=== PATIENT | male | born 1955 | race Caucasian/White ===

== ENCOUNTER 2016-12-09 08:35 | Emergency (ER) | payer OTHER ==
[2016-12-09 08:48] VITALS: TEMP 98.1; BMI 24.0
--- NOTE | 2016-12-09 09:23 | PDOC ---
History of Present Illness <Sonny Finney - Last Filed: 12/09/16 16:59> - General History Source: Patient Exam Limitations: No Limitations - History of Present Illness Initial Comments: 12/09/16 10:18 The patient is a 61 year old male, with a significant past medical history of chronic venous stasis, hepatitis C, cirrhosis, GERD and chronic alcohol use, who presents to the emergency department complaining of increased swelling and redness to the right robles for approximately 1 week. Patient reports he has noticed increased warmth and erythema at the right robles. Patient states he had a bakers cyst at the right that was removed about 1 year ago. Since then, the patient reports the wound was healing well, and he has obtained multiple dopplers to monitor his vascular flow. He denies any history of trauma to the right leg or any difficulty ambulating. The patient denies any recent fever, chills, headache, or dizziness. He denies any chest pain, shortness of breath, diaphoresis, or palpitations. He denies any recent travel or sick contacts. Patient reports he attends the [facility] for Hep C treatment, and per records he is HIV negative. Allergies: NKDA Past Surgical History: Bakers cyst removal, Hernia repair Social History: Chronic ETOH use. Non smoker. No recreational drug use. <Zita Fallon - Last Filed: 12/09/16 18:33> - General Chief Complaint: Redness To Affected Area Stated Complaint: EVALUATION/ CELLULITIS Time Seen by Provider: 12/09/16 09:23 Past History - Past Medical History Anemia: No Asthma: No Cancer: No Cardiac Disorders: No CVA: No COPD: No CHF: No Dementia: No Diabetes: No GI Disorders: Yes (GERD) Disorders: No HTN: No Hypercholesterolemia: No Kidney Stones: No Liver Disease: Yes (CIRRHOSIS) Suicide Attempt (Hx): No Seizures: No Thyroid Disease: No - Surgical History Abdominal Surgery: Yes (HERNIA) Appendectomy: No Cardiac Surgery: No Cholecystectomy: No Lung Surgery: No Neurologic Surgery: No Orthopedic Surgery: No - Reproductive History Testicular Surgery: No - Immunization History Td Vaccination: Yes TDAP Vaccination: No Immunization Up to Date: Yes - Psycho/Social/Smoking Cessation Hx Anxiety: No Suicidal Ideation: No Smoking History: Never smoked Have you smoked in the past 12 months: No Number of Cigarettes Smoked Daily: 0 Information on smoking cessation initiated: No 'Breaking Loose' booklet given: 11/20/15 Hx Alcohol Use: No Drug/Substance Use Hx: No Substance Use Type: None Hx Substance Use Treatment: Yes (DETOX) <Sonny Finney - Last Filed: 12/09/16 16:59> <Zita Fallon - Last Filed: 12/09/16 18:33> - Past Medical History Allergies/Adverse Reactions: Allergies Allergy/AdvReac Type Severity Reaction Status Date / Time No Known Allergies Allergy Verified 12/09/16 08:44 Home Medications: Ambulatory Orders Amoxicillin/Potassium Clav [Augmentin 500-125 Tablet] 1 each PO TID #30 tablet 12/09/16 Review of Systems - Review of Systems Able to Perform ROS?: Yes Comments:: 12/09/16 10:18 GENERAL/CONSTITUTIONAL: No fever or chills. No weakness. HEAD, EYES, EARS, NOSE AND THROAT: No change in vision. No ear pain or discharge. No sore throat. CARDIOVASCULAR: No chest pain or shortness of breath. RESPIRATORY: No cough, wheezing, or hemoptysis. GASTROINTESTINAL: No nausea, vomiting, diarrhea or constipation. GENITOURINARY: No dysuria, frequency, or change in urination. MUSCULOSKELETAL: Yes: +right leg swelling. No joint or muscle pain. No neck or back pain. SKIN: Yes: +increased swelling, redness, and warmth to the right robles. No rash NEUROLOGIC: No headache, vertigo, loss of consciousness, or change in strength/ sensation. ENDOCRINE: No increased thirst. No abnormal weight change. HEMATOLOGIC/LYMPHATIC: No anemia, easy bleeding, or history of blood clots. ALLERGIC/IMMUNOLOGIC: No hives or skin allergy. <Zita Fallon - Last Filed: 12/09/16 18:33> *Physical Exam - Vital Signs Last Vital Signs Temp Pulse Resp BP Pulse Ox 98.1 F 53 L 18 122/65 96 12/09/16 08:44 12/09/16 08:44 12/09/16 08:44 12/09/16 08:44 12/09/16 08:44 <Sonny Finney - Last Filed: 12/09/16 16:59> - Vital Signs Last Vital Signs Temp Pulse Resp BP Pulse Ox 98.1 F 53 L 18 122/65 96 12/09/16 08:44 12/09/16 08:44 12/09/16 08:44 12/09/16 08:44 12/09/16 08:44 - Physical Exam Comments: 12/09/16 10:18 GENERAL: Awake, alert, and fully oriented, in no acute distress HEAD: No signs of trauma EYES: PERRLA, EOMI, sclera anicteric, conjunctiva clear ENT: Auricles normal inspection, hearing grossly normal, nares patent, oropharynx clear without exudates. Moist mucosa NECK: Normal ROM, supple, no lymphadenopathy, JVD, or masses LUNGS: Breath sounds equal, clear to auscultation bilaterally. No wheezes, and no crackles HEART: Regular rate and rhythm, normal S1 and S2, no murmurs, rubs or gallops ABDOMEN: Soft, nontender, normoactive bowel sounds. No guarding, no rebound. No masses EXTREMITIES: Normal range of motion, no edema. No clubbing or cyanosis. No cords, erythema, or tenderness NEUROLOGICAL: Cranial nerves II through XII grossly intact. Normal speech, normal gait SKIN: In the middle third of the right leg from the knee to the ankle, there is an area that is discolored, atrophic, erythematous, and warm to the touch, with a central area of necrosis, which he states is where the cyst was before. Otherwise normal <Zita Fallon - Last Filed: 12/09/16 18:33> Heart Score/ECG Review - ECG Intrepretation Comment:: 12/09/16 18:32 Vent Rate: 54 bpm IMPRESSION: Sinus bradycardia. <Zita Fallon - Last Filed: 12/09/16 18:33> ED Treatment Course - LABORATORY CBC & Chemistry Diagram: 12/09/16 10:03 12/09/16 10:03 <Sonny Finney - Last Filed: 12/09/16 16:59> - LABORATORY CBC & Chemistry Diagram: 12/09/16 10:03 12/09/16 10:03 - RADIOLOGY Radiograph Interpretation: 12/09/16 12:27 EXAM: US Duplex Art. Lower Extremity. INTERPRETED BY: REVIEWED BY: Dr. Finney IMPRESSION: There is no Doppler evidence of a hemodynamically significant arterial stenosis involving either leg as discussed above. <Zita Fallon - Last Filed: 12/09/16 18:33> Medical Decision Making - Medical Decision Making 12/09/16 12:34 First call placed to Dr. Tejada's office at 12:34. Awaiting call back. <Zita Fallon - Last Filed: 12/09/16 18:33> *DC/Admit/Observation/Transfer - Discharge Dispostion Admit: No - Attestations Physician Attestion: 12/09/16 09:23 I, Dr. Sonny Finney, attest that this document has been prepared under my direction and personally reviewed by me in its entirety. I further attest, that it accurately reflects all work, treatment, procedures and medical decision -making performed by me. <Sonny Finney - Last Filed: 12/09/16 16:59> - Attestations Scribe Attestion: 12/09/16 10:19 Documentation prepared by Zita Fallon, acting as emergency medical services coordinator for Sonny Finney DO. <Zita Fallon - Last Filed: 12/09/16 18:33> Diagnosis at time of Disposition: Temporary low platelet count, Cellulitis of right leg without foot Leukopenia Qualifiers: Leukopenia type: unspecified Qualified Code(s): D72.819 - Decreased white blood cell count, unspecified - Discharge Dispostion Disposition: HOME Condition at time of disposition: Good - Prescriptions
[2016-12-09] MEDS ORDERED: PIPERACILLIN/TAZOB 3.375 GM/50 ML PRE-DOCKED IV ONE (09:56)
[2016-12-09] MEDS ORDERED: VANCOMYCIN 1,000 MG in DEXTROSE 5%-WATER - 250 ML IVPB ONE (09:58)
[2016-12-09 10:25] LABS: EOSINOPHIL 3.8 % (0-4.5); MEAN CELL VOLUME 88.1 fl (80-96); MEAN PLT VOLUME 8.7 fl (7.5-11.1); NEUTROPHILS 52.4 % (42.8-82.8); PLATELET COUNT 94 K/MM3 (134-434); RDW 18.9 % (11.9-15.9); WHITE BLOOD COUNT 2.4 K/mm3 (4.0-10.0)
[2016-12-09 10:37] LABS: INR 1.76 (0.82-1.09); PROTHROMBIN TIME (PATIENT) 19.6 SEC (9.98-11.88)
[2016-12-09 10:39] LABS: ALBUMIN 2.9 g/dl (3.4-5.0); ANION GAP 7 (8-16); CALCIUM 8.3 mg/dL (8.5-10.1); CO2 28 mmol/L (21-32); CREATININE 0.9 mg/dL (0.7-1.3); GLUCOSE,RANDOM 123 mg/dL (74-106); SGPT/ALT 37 U/L (12-78); TOT PROT 7.1 g/dl (6.4-8.2)
[2016-12-09 10:40] LABS: ALK PHOS 108 U/L (45-117)
[2016-12-09 10:42] LABS: SGOT/AST 142 U/L (15-37)
[2016-12-09 10:54] LABS: URINE APPEARANCE CLEAR; URINE BILIRUBIN NEGATIVE (NEGATIVE); URINE BLOOD NEGATIVE (NEGATIVE); URINE COLOR YELLOW; URINE GLUCOSE (UA) NEGATIVE (NEGATIVE); URINE KETONE NEGATIVE (NEGATIVE); URINE LEUK ESTERASE NEGATIVE (NEGATIVE); URINE NITRITE NEGATIVE (NEGATIVE); URINE PROTEIN NEGATIVE (NEGATIVE); URINE UROBILINOGEN 4.0 E.U/dl mg/dL (0.2-1.0)
[2016-12-09] MEDS ORDERED: PIPERACILLIN/TAZOB 3.375 GM 50 ML IVPB ONE (11:03)
[2016-12-09] MEDS ORDERED: VANCOMYCIN 1 GRAM (PRE-DOCKED) 250 ML IVPB ONE (11:03)
[2016-12-09 14:59] LABS: C-REACTIVE PROTEIN 0.4 MG/DL (0.00-0.3)
--- NOTE | 2016-12-09 15:45 | HOSP ---
Subjective - Review of Symptoms General: No: Chills, Night Sweats, Fatigue, Malaise HEENT: No: Head Aches, Visual Changes, Eye Pain Cardiovascular: No: Chest Pain, Palpitations, Orthopnea Gastrointestinal: No: Nausea, Vomiting, Abdominal Pain, Diarrhea, Constipation Genitourinary: No: Dysuria, Frequency Musculoskeletal: Yes: Extremity Pain (right lower leg pain) Neurological: No: Weakness, Numbness, Change in speech, Confusion Physical Examination Vital Signs: Vital Signs Temperature 98.1 F 12/09/16 08:44 Pulse Rate 53 L 12/09/16 08:44 Respiratory Rate 18 12/09/16 08:44 Blood Pressure 122/65 12/09/16 08:44 O2 Sat by Pulse Oximetry (%) 96 12/09/16 08:44 Constitutional: Yes: No Distress, Calm HENT: Yes: WNL, Normocephalic. No: Atraumatic Neck: Yes: WNL, Supple, Trachea Midline Cardiovascular: Yes: WNL, Regular Rate and Rhythm. No: JVD, Gallop, Murmur, Rub Respiratory: Yes: WNL, Regular, CTA Bilaterally. No: Accessory Muscle Use Gastrointestinal: Yes: WNL, Normal Bowel Sounds, Soft. No: Abdomen, Obese, Ascites ...Rectal Exam: Yes: Deferred Renal/: Yes: WNL Musculoskeletal: No: WNL Edema: Yes Edema: LLE: Trace, RLE: Trace Peripheral Pulses WNL: Yes Peripheral Pulses: Left Radial: 2+, Right Radial: 2+, Left Doralis Pedis: 2+, Right Dorsalis Pedis: 2+ Integumentary: Yes: Venous Stasis Changes (right lower leg) Neurological: Yes: Alert, Oriented ...Motor Strength: WNL Psychiatric: Yes: WNL Labs: CBC, BMP 12/09/16 10:03 12/09/16 10:03 Hospitalist Encounter Assessment: This is a 61 yo man with PMH: HCV s/p Epclusa, remote IVDA and alcoholic cirrhosis presents with right lower extremity circumferential venous stasis changes with 0.5cm circular ulceration at the center where he had had a aneurysm removed. The patient states he is concerned for recurrent cellulitis as he has had cellulitis in the past. The area surrounding the ulceration is cool to touch without erythema, induration or discharge. He has not tried outpatient therapy as of yet and was evaluated by his PMD [facility] 1 week ago without intervention. The patient is aware of his lab results, which are consistent with his baseline, and has f/u with a cushion builder set up by Dr. Hightower. Case d/w MD Finney with the recommendation that patient tries PO abx therapy and follows up with his primary.
[2016-12-09 16:37] VITALS: BP 124/66; PULSE 61
--- NOTE | 2016-12-10 15:34 | EKG ---
Test Reason : Blood Pressure : / mmHG Vent. Rate : 054 BPM Atrial Rate : 054 BPM P-R Int : 160 ms QRS Dur : 094 ms QT Int : 474 ms P-R-T Axes : 033 -23 036 degrees QTc Int : 449 ms SINUS BRADYCARDIA CANNOT RULE OUT ANTERIOR INFARCT (CITED ON OR BEFORE 20-NOV-2015) ABNORMAL ECG WHEN COMPARED WITH ECG OF 20-NOV-2015 09:56, NO SIGNIFICANT CHANGE WAS FOUND Confirmed by MERVAT DAVIES, GEORGETTE ([id number]) on 12/10/2016 3:33:33 PM Referred By: Confirmed By:GEORGETTE CROWELL MD
== END 2016-12-09 17:00 | disposition home or self-care (01) ==
LOC: JER 08:35 → UNDOADMIN 14:47 → JERBED 14:47 → UNDODISIN 17:00 → JER 17:00
DX: L03.115 Cellulitis of right lower limb (principal); D72.819 Decreased white blood cell count, unspecified; I87.8 Other specified disorders of veins; K74.69 Other cirrhosis of liver; F10.10 Alcohol abuse, uncomplicated; B18.2 Chronic viral hepatitis C; K21.9 Gastro-esophageal reflux disease without esophagitis
CPT/HCPCS: 36415; 71010-TC; 73590-TC-RT; 80053; 81003; 85025; 85610; 86140; 87040; 87086; 93005; 93010; 93925-TC; 93970-TC; 96365; 96375; 99282-25

== ENCOUNTER 2020-05-23 09:52 | Inpatient (IN) | payer OTHER ==
[2020-05-23 10:04] VITALS: BMI 31.7
[2020-05-23] MEDS ORDERED: SODIUM CHLORIDE 1,000 ML IV STA ×2 (11:19→15:42)
[2020-05-23 12:18] LABS: HEMATOCRIT 36.6 % (35.4-49); HEMOGLOBIN 12.1 GM/dL (11.7-16.9); MCH 33.9 pg (25.7-33.7); MCHC 33.1 g/dl (32.0-35.9); MEAN CELL VOLUME 102.3 fl (80-96); MEAN PLT VOLUME 11.1 fl (7.5-11.1); PLATELET COUNT 197 K/MM3 (134-434); RBC 3.57 M/mm3 (4.00-5.60); RDW 15.4 % (11.9-15.9); WHITE BLOOD COUNT 3.8 K/mm3 (4.0-10.0)
[2020-05-23 12:37] LABS: CHLORIDE 103 mmol/L (98-107); POTASSIUM 4.4 mmol/L (3.5-5.1); SODIUM 138 mmol/L (136-145)
[2020-05-23 12:40] LABS: CALCIUM 8.6 mg/dL (8.5-10.1)
[2020-05-23 12:41] LABS: ALBUMIN 2.5 g/dl (3.4-5.0); ANION GAP 4 MMOL/L (8-16); BLOOD UREA NITROGEN 32.4 mg/dL (7-18); CO2 31 mmol/L (21-32); GLUCOSE,RANDOM 133 mg/dL (74-106)
[2020-05-23 12:44] LABS: CREATININE 1.4 mg/dL (0.55-1.3); SGOT/AST 136 U/L (15-37); SGPT/ALT 48 U/L (13-61)
[2020-05-23 12:45] LABS: BILIRUBIN,TOTAL 3.8 mg/dL (0.2-1); TOT PROT 8.9 g/dl (6.4-8.2)
[2020-05-23 12:46] LABS: ALK PHOS 79 U/L (45-117)
[2020-05-23] MEDS ORDERED: VANCOMYCIN 1 GM in D5W (PRE-DOCKED) 1,000 MG/250 ML IVPB ONE (13:51)
[2020-05-23] MEDS ORDERED: CLINDAMYCIN 600MG PREMIX IVPB 600 MG/50 ML BAG IVPB ONE ×2 (13:51→14:41)
[2020-05-23] MEDS ORDERED: DALBAVANCIN HCL 1,500 MG in DEXTROSE 5%-WATER - 500 ML IVPB ONE (13:56)
[2020-05-23] MEDS ORDERED: FOLIC ACID INJECTION - 1 MG, THIAMINE HCL 100 MG, MULTIVIT INJECTION ADULT 10 ML in SOD... IVPB ONE (15:42)
[2020-05-23] MEDS: SODIUM CHLORIDE 1,000 ML IV SCH (17:30)
[2020-05-23] MEDS ORDERED: HEPARIN NA (PORCINE) 5,000 UNITS/ML 1ML VIAL SQ SCH (18:00)
[2020-05-23] MEDS ORDERED: ACETAMINOPHEN 1000 MG/100 ML VIAL (NON FORMULARY) IVPB ONE (18:34)
[2020-05-23] MEDS ORDERED: ACETAMINOPHEN INJECTION 100 ML IVPB ONE (18:42)
[2020-05-23] MEDS ORDERED: LORazepam 2 MG/ML SDV VIAL IVPB PRN (19:03)
[2020-05-23] MEDS ORDERED: PIPERACILLIN/TAZOB 3.375 GM 3.375 GM/50 ML BAG IVPB ONE (19:04)
[2020-05-23] MEDS: PIPERACILLIN/TAZOB 3.375 GM 3.375 GM in DEXTROSE 5%-WATER - 50 ML IVPB SCH (19:04)
[2020-05-23] MEDS ORDERED: CLINDAMYCIN 600MG PREMIX IVPB 600 MG/50 ML BAG IVPB SCH (20:00)
[2020-05-23 20:44] LABS: INR 1.72 (0.83-1.09); PROTHROMBIN TIME (PATIENT) 20.5 SEC (9.7-13.0)
[2020-05-23 20:47] LABS: ACTIVATED PTT 36.3 SECONDS (25.2-36.5)
[2020-05-24] MEDS ORDERED: PIPERACILLIN/TAZOBACTAM 3.375 GM VIAL IVPB ONE ×3 (01:56→17:19)
[2020-05-24] MEDS ORDERED: DEXTROSE 5%-WATER - 50 ML IVPB ONE ×3 (01:56→17:19)
[2020-05-24] MEDS: PIPERACILLIN/TAZOB 3.375 GM 3.375 GM in DEXTROSE 5%-WATER - 50 ML IVPB SCH ×3 (02:03→17:24)
[2020-05-24 07:46] LABS: HEMATOCRIT 34.7 % (35.4-49); HEMOGLOBIN 11.4 GM/dL (11.7-16.9); MCH 33.6 pg (25.7-33.7); MEAN CELL VOLUME 101.9 fl (80-96); MEAN PLT VOLUME 9.5 fl (7.5-11.1); PLATELET COUNT 101 K/MM3 (134-434); RBC 3.41 M/mm3 (4.00-5.60); RDW 15.1 % (11.9-15.9); WHITE BLOOD COUNT 2.1 K/mm3 (4.0-10.0)
[2020-05-24 07:50] LABS: INR 2.04 (0.83-1.09); PROTHROMBIN TIME (PATIENT) 24.2 SEC (9.7-13.0)
[2020-05-24 07:53] LABS: ACTIVATED PTT 38.3 SECONDS (25.2-36.5)
[2020-05-24 08:02] LABS: POTASSIUM 3.5 mmol/L (3.5-5.1)
[2020-05-24 08:05] LABS: CALCIUM 7.5 mg/dL (8.5-10.1)
[2020-05-24 08:06] LABS: BLOOD UREA NITROGEN 28.3 mg/dL (7-18); MAGNESIUM 1.6 mg/dL (1.8-2.4)
[2020-05-24 08:09] LABS: CREATININE 1.3 mg/dL (0.55-1.3)
[2020-05-24 08:11] LABS: BILIRUBIN,TOTAL 3.3 mg/dL (0.2-1); TOT PROT 7.2 g/dl (6.4-8.2)
[2020-05-24] MEDS: THIAMINE HCL 100 MG TABLET (FP) PO SCH (09:02)
[2020-05-24] MEDS: FOLIC ACID 1 MG TABLET (FP) PO SCH (09:02)
[2020-05-24] MEDS: PANTOPRAZOLE SODIUM 40 MG VIAL IVPUSH SCH (09:02)
[2020-05-24] MEDS: MULTIVITAMINS (DAILY MVI) TABLET (FP) PO SCH (09:02)
[2020-05-24] MEDS ORDERED: VANCOMYCIN 1 GM in D5W (PRE-DOCKED) 1,000 MG/250 ML IVPB SCH (10:00)
[2020-05-24] MEDS ORDERED: ACETAMINOPHEN 325 MG TABLET (FP) PO PRN (11:32)
[2020-05-24] MEDS: MAGNESIUM OXIDE 400 MG TABLET (FP) PO SCH ×2 (12:46→21:12)
[2020-05-24] MEDS: SODIUM CHLORIDE 1,000 ML IV SCH ×2 (12:53→18:41)
[2020-05-24] MEDS ORDERED: LACTULOSE 20 GM/30 ML UDC (FOR ORAL USE ONLY) PO PRN (14:34)
[2020-05-24] MEDS ORDERED: PIPERACILLIN/TAZOB 3.375 GM 3.375 GM in DEXTROSE 5%-WATER - 50 ML IVPB SCH (18:00)
[2020-05-24] MEDS ORDERED: LORazepam 1 MG TABLET PO PRN (18:26)
[2020-05-24] MEDS: HEPARIN NA (PORCINE) 5,000 UNITS/ML 1ML VIAL SQ SCH (21:12)
[2020-05-25] MEDS ORDERED: PIPERACILLIN/TAZOBACTAM 3.375 GM VIAL IVPB ONE ×4 (01:12→17:03)
[2020-05-25] MEDS ORDERED: DEXTROSE 5%-WATER - 50 ML IVPB ONE ×3 (01:12→17:03)
[2020-05-25 01:25] LABS: COCAINE, UR NEGATIVE ng/ml (CUTOFF=300); URINE BARBITURATES NEGATIVE ng/ml (CUTOFF=200)
[2020-05-25 01:26] LABS: OPIATES, URI NEGATIVE ng/ml (CUTOFF=300); PHENCYCLIDINE,URINE NEGATIVE ng/ml (CUTOFF=25)
[2020-05-25 01:29] LABS: URINE AMPHETAMINES NEGATIVE ng/ml (CUTOFF=500)
[2020-05-25 01:31] LABS: METHADONE, UR POSITIVE ng/ml (CUTOFF=300); URINE BENZODIAZEPINES POSITIVE ng/ml (CUTOFF=200)
[2020-05-25] MEDS: PIPERACILLIN/TAZOB 3.375 GM 3.375 GM in DEXTROSE 5%-WATER - 50 ML IVPB SCH ×3 (01:32→17:14)
[2020-05-25] MEDS: SODIUM CHLORIDE 1,000 ML IV SCH ×3 (01:33→21:22)
[2020-05-25] MEDS: HEPARIN NA (PORCINE) 5,000 UNITS/ML 1ML VIAL SQ SCH ×3 (06:30→21:21)
[2020-05-25 07:45] LABS: BASO % 1.5 % (0-2.0); EOS % 2.5 % (0-4.5); HEMOGLOBIN 12.8 GM/dL (11.7-16.9); MCH 34.1 pg (25.7-33.7); MCHC 33.6 g/dl (32.0-35.9); MEAN CELL VOLUME 101.5 fl (80-96); MEAN PLT VOLUME 9.3 fl (7.5-11.1); MONO % 21.3 % (3.8-10.2); NEUT % 49.7 % (42.8-82.8); PLATELET COUNT 94 K/MM3 (134-434); RBC 3.74 M/mm3 (4.00-5.60); RDW 14.7 % (11.9-15.9); WHITE BLOOD COUNT 2.1 K/mm3 (4.0-10.0)
[2020-05-25 08:23] LABS: CALCIUM 7.5 mg/dL (8.5-10.1)
[2020-05-25 08:24] LABS: ALBUMIN 1.8 g/dl (3.4-5.0); BLOOD UREA NITROGEN 18.5 mg/dL (7-18); MAGNESIUM 1.5 mg/dL (1.8-2.4)
[2020-05-25 08:27] LABS: CREATININE 0.8 mg/dL (0.55-1.3)
[2020-05-25 08:29] LABS: BILIRUBIN,TOTAL 2.3 mg/dL (0.2-1); TOT PROT 6.7 g/dl (6.4-8.2)
[2020-05-25 08:54] LABS: POTASSIUM 2.9 mmol/L (3.5-5.1)
[2020-05-25] MEDS ORDERED: POTASSIUM CHLORIDE ORAL LIQUID 20 MEQ/15 ML PO ONE (09:03)
[2020-05-25] MEDS: PANTOPRAZOLE SODIUM 40 MG VIAL IVPUSH SCH (09:32)
[2020-05-25] MEDS: FOLIC ACID 1 MG TABLET (FP) PO SCH (09:33)
[2020-05-25] MEDS: MULTIVITAMINS (DAILY MVI) TABLET (FP) PO SCH (09:33)
[2020-05-25] MEDS: MAGNESIUM OXIDE 400 MG TABLET (FP) PO SCH ×2 (09:33→21:18)
[2020-05-25] MEDS: KCL 10 MEQ IVPB 10 MEQ/100 ML INFUS.BAG IVPB SCH ×2 (10:29→11:19)
[2020-05-25] MEDS: THIAMINE HCL 100 MG TABLET (FP) PO SCH (10:29)
[2020-05-25 15:09] LABS: ANISOCYTOSIS 1+; MACROCYTOSIS 1+; PLATELET ESTIMATE DECREASED
[2020-05-26] MEDS ORDERED: DEXTROSE 5%-WATER - 50 ML IVPB ONE ×3 (00:42→17:24)
[2020-05-26] MEDS ORDERED: PIPERACILLIN/TAZOBACTAM 3.375 GM VIAL IVPB ONE ×3 (00:42→17:24)
[2020-05-26] MEDS: PIPERACILLIN/TAZOB 3.375 GM 3.375 GM in DEXTROSE 5%-WATER - 50 ML IVPB SCH ×3 (01:20→17:27)
[2020-05-26] MEDS: HEPARIN NA (PORCINE) 5,000 UNITS/ML 1ML VIAL SQ SCH ×3 (06:32→22:14)
[2020-05-26] MEDS: MAGNESIUM OXIDE 400 MG TABLET (FP) PO SCH ×2 (09:59→22:15)
[2020-05-26] MEDS: THIAMINE HCL 100 MG TABLET (FP) PO SCH (09:59)
[2020-05-26] MEDS: MULTIVITAMINS (DAILY MVI) TABLET (FP) PO SCH (09:59)
[2020-05-26] MEDS: PANTOPRAZOLE SODIUM 40 MG VIAL IVPUSH SCH (10:00)
[2020-05-26] MEDS: FOLIC ACID 1 MG TABLET (FP) PO SCH (10:00)
[2020-05-26] MEDS: LIDOCAINE 5% TOPICAL PATCH TP SCH (12:37)
[2020-05-26] MEDS ORDERED: LACTULOSE 20 GM/30 ML UDC (FOR ORAL USE ONLY) PO PRN (13:42)
[2020-05-26] MEDS ORDERED: ACETAMINOPHEN 325 MG TABLET (FP) PO PRN (13:42)
[2020-05-26] MEDS ORDERED: LORazepam 2 MG/ML SDV VIAL IVPB PRN (13:42)
[2020-05-26] MEDS ORDERED: LORazepam 1 MG TABLET PO PRN (13:42)
[2020-05-26] MEDS: SODIUM CHLORIDE 1,000 ML IV SCH ×2 (14:30→22:29)
[2020-05-26] MEDS: traMADol HCL 50 MG TABLET PO PRN (17:25)
[2020-05-26 21:08] LABS: HEMATOCRIT 34.3 % (35.4-49); HEMOGLOBIN 11.2 GM/dL (11.7-16.9); MCH 32.8 pg (25.7-33.7); MCHC 32.7 g/dl (32.0-35.9); MEAN CELL VOLUME 100.3 fl (80-96); MEAN PLT VOLUME 9.1 fl (7.5-11.1); PLATELET COUNT 81 K/MM3 (134-434); RBC 3.42 M/mm3 (4.00-5.60); RDW 14.3 % (11.9-15.9)
[2020-05-26 21:28] LABS: ALBUMIN 1.8 g/dl (3.4-5.0); BLOOD UREA NITROGEN 8.3 mg/dL (7-18)
[2020-05-26 21:31] LABS: CREATININE 0.7 mg/dL (0.55-1.3)
[2020-05-26 21:33] LABS: TOT PROT 6.7 g/dl (6.4-8.2)
[2020-05-26] MEDS: LIDOCAINE PATCH REMOVAL MC SCH (22:15)
[2020-05-26 22:53] LABS: POTASSIUM 2.9 mmol/L (3.5-5.1)
[2020-05-26 23:01] LABS: ANISOCYTOSIS 1+; MACROCYTOSIS 1+; PLATELET ESTIMATE DECREASED
[2020-05-26] MEDS ORDERED: SODIUM CHLORIDE 1,000 ML IV SCH (23:20)
[2020-05-26] MEDS ORDERED: ONDANSETRON 4 MG/2 ML VIAL IVPUSH PRN (23:20)
[2020-05-26] MEDS ORDERED: POTASSIUM CHLORIDE TABS 20 MEQ TABLET.ER (FP) PO ONE (23:49)
[2020-05-27] MEDS ORDERED: PT OWN MED DRAWER 7, Y5N ONE (00:03)
[2020-05-27] MEDS ORDERED: DEXTROSE 5%-WATER - 50 ML IVPB ONE ×4 (01:09→17:05)
[2020-05-27] MEDS ORDERED: PIPERACILLIN/TAZOBACTAM 3.375 GM VIAL IVPB ONE ×2 (01:09→08:50)
[2020-05-27] MEDS: PIPERACILLIN/TAZOB 3.375 GM 3.375 GM in DEXTROSE 5%-WATER - 50 ML IVPB SCH ×2 (02:40→09:28)
[2020-05-27] MEDS: traMADol HCL 50 MG TABLET PO PRN ×2 (04:20→21:35)
[2020-05-27] MEDS ORDERED: POTASSIUM CHLORIDE TABS 20 MEQ TABLET.ER (FP) PO ONE (05:00)
[2020-05-27] MEDS: HEPARIN NA (PORCINE) 5,000 UNITS/ML 1ML VIAL SQ SCH ×3 (05:55→21:36)
[2020-05-27] MEDS ORDERED: METHADONE HCL 10 MG TABLET PO ONE ×2 (09:00)
[2020-05-27] MEDS ORDERED: METHADONE HCL 40 MG DISPERSABLE TABLET ONE (09:15)
[2020-05-27] MEDS ORDERED: METHADONE HCL 10 MG TABLET ONE (09:16)
[2020-05-27] MEDS: MAGNESIUM OXIDE 400 MG TABLET (FP) PO SCH ×2 (09:29→21:36)
[2020-05-27] MEDS: FOLIC ACID 1 MG TABLET (FP) PO SCH (09:29)
[2020-05-27] MEDS: MULTIVITAMINS (DAILY MVI) TABLET (FP) PO SCH (09:29)
[2020-05-27] MEDS: METHADONE 40 MG, METHADONE 10 MG PO SCH (09:29)
[2020-05-27] MEDS: PANTOPRAZOLE SODIUM 40 MG VIAL IVPUSH SCH (09:30)
[2020-05-27] MEDS: THIAMINE HCL 100 MG TABLET (FP) PO SCH (09:30)
[2020-05-27] MEDS: LIDOCAINE 5% TOPICAL PATCH TP SCH (09:30)
[2020-05-27 11:52] LABS: BASO % 1.3 % (0-2.0); EOS % 2.2 % (0-4.5); HEMATOCRIT 35.4 % (35.4-49); HEMOGLOBIN 11.7 GM/dL (11.7-16.9); MCH 32.9 pg (25.7-33.7); MEAN CELL VOLUME 99.6 fl (80-96); MONO % 15.5 % (3.8-10.2); PLATELET COUNT 81 K/MM3 (134-434); RBC 3.55 M/mm3 (4.00-5.60); RDW 14.8 % (11.9-15.9)
[2020-05-27 12:03] LABS: POTASSIUM 3.2 mmol/L (3.5-5.1)
[2020-05-27 12:09] LABS: WHITE BLOOD COUNT 1.9 K/mm3 (4.0-10.0)
[2020-05-27 12:27] LABS: CALCIUM 7.4 mg/dL (8.5-10.1)
[2020-05-27 12:28] LABS: ALBUMIN 1.8 g/dl (3.4-5.0); BLOOD UREA NITROGEN 5.9 mg/dL (7-18)
[2020-05-27 12:30] LABS: CREATININE 0.7 mg/dL (0.55-1.3)
[2020-05-27 12:32] LABS: BILIRUBIN,TOTAL 1.8 mg/dL (0.2-1); TOT PROT 6.7 g/dl (6.4-8.2)
[2020-05-27] MEDS ORDERED: ceFAZolin SODIUM 1 GM VIAL ONE ×2 (13:11→17:04)
[2020-05-27 13:24] LABS: ANISOCYTOSIS 1+; MACROCYTOSIS 1+; PLATELET ESTIMATE DECREASED
[2020-05-27] MEDS: CEFAZOLIN 1 GM in DEXTROSE 5%-WATER - 50 ML IVPB SCH ×2 (13:29→17:07)
[2020-05-27] MEDS: LIDOCAINE PATCH REMOVAL MC SCH (21:36)
[2020-05-28] MEDS ORDERED: ceFAZolin SODIUM 1 GM VIAL ONE ×2 (01:09→09:49)
[2020-05-28] MEDS ORDERED: DEXTROSE 5%-WATER - 50 ML IVPB ONE ×2 (01:10→09:49)
[2020-05-28] MEDS: CEFAZOLIN 1 GM in DEXTROSE 5%-WATER - 50 ML IVPB SCH ×2 (01:26→10:29)
[2020-05-28] MEDS ORDERED: METHADONE HCL 10 MG TABLET ONE (05:26)
[2020-05-28] MEDS ORDERED: METHADONE HCL 40 MG DISPERSABLE TABLET ONE (05:27)
[2020-05-28] MEDS: HEPARIN NA (PORCINE) 5,000 UNITS/ML 1ML VIAL SQ SCH ×2 (05:30→13:09)
[2020-05-28] MEDS: METHADONE 40 MG, METHADONE 10 MG PO SCH (05:31)
[2020-05-28] MEDS ORDERED: METHADONE HCL 40 MG DISPERSABLE TABLET PO SCH ×2 (06:00)
[2020-05-28 07:57] LABS: BASO % 1.2 % (0-2.0); EOS % 2.3 % (0-4.5); HEMATOCRIT 33.7 % (35.4-49); HEMOGLOBIN 11.6 GM/dL (11.7-16.9); LYMPH % 31.3 % (8-40); MCH 33.7 pg (25.7-33.7); MCHC 34.3 g/dl (32.0-35.9); MEAN CELL VOLUME 98.1 fl (80-96); MEAN PLT VOLUME 8.5 fl (7.5-11.1); MONO % 20.3 % (3.8-10.2); NEUT % 44.9 % (42.8-82.8); PLATELET COUNT 75 K/MM3 (134-434); RBC 3.44 M/mm3 (4.00-5.60); RDW 14.6 % (11.9-15.9); WHITE BLOOD COUNT 2.2 K/mm3 (4.0-10.0)
[2020-05-28 08:46] LABS: ALBUMIN 1.8 g/dl (3.4-5.0); BILIRUBIN,TOTAL 1.5 mg/dL (0.2-1); BLOOD UREA NITROGEN 7.2 mg/dL (7-18); CALCIUM 7.1 mg/dL (8.5-10.1); CREATININE 0.7 mg/dL (0.55-1.3); POTASSIUM 3.3 mmol/L (3.5-5.1); TOT PROT 6.8 g/dl (6.4-8.2)
[2020-05-28] MEDS ORDERED: MAGNESIUM OXIDE 400 MG TABLET (FP) PO SCH (08:52)
[2020-05-28 08:58] LABS: ANISOCYTOSIS 0; MACROCYTOSIS 1+; PLATELET ESTIMATE DECREASED
[2020-05-28] MEDS ORDERED: POTASSIUM CHLORIDE TABS 20 MEQ TABLET.ER (FP) PO ONE (10:00)
[2020-05-28] MEDS: LIDOCAINE 5% TOPICAL PATCH TP SCH (10:29)
[2020-05-28] MEDS: PANTOPRAZOLE SODIUM 40 MG VIAL IVPUSH SCH (10:30)
[2020-05-28] MEDS: FOLIC ACID 1 MG TABLET (FP) PO SCH (10:30)
[2020-05-28] MEDS: THIAMINE HCL 100 MG TABLET (FP) PO SCH (10:30)
[2020-05-28] MEDS: MULTIVITAMINS (DAILY MVI) TABLET (FP) PO SCH (10:30)
[2020-05-28] MEDS: MAGNESIUM 1GM/D5W 100ML - 100 ML IVPB IVPB SCH ×2 (10:37→13:09)
[2020-05-28 14:01] VITALS: BP 118/70; PULSE 71; TEMP 98.5
== END 2020-05-28 17:52 | DRG 603 ==
LOC: JER 09:52 → JERBED 17:21 → J4S 22:49 → J5S 05-26 12:55 → J7W 05-27 21:28
PROVIDERS: ATTEND Nurse Practitioner Acute Care
PROC: HZ2ZZZZ Detoxification Services for Substance Abuse Treatment (ICD-10-PCS; principal; 2020-05-23)
PROC: 02HV33Z Insertion of Infusion Device into Superior Vena Cava, Percutaneous Approach (ICD-10-PCS; 2020-05-28)
PROC: B518ZZA Fluoroscopy of Superior Vena Cava, Guidance (ICD-10-PCS; 2020-05-28)
DX: L03.115 Cellulitis of right lower limb (principal); S06.9X9A Unspecified intracranial injury with loss of consciousness of unspecified duration, initial encounter; N17.9 Acute kidney failure, unspecified; M62.82 Rhabdomyolysis; F10.230 Alcohol dependence with withdrawal, uncomplicated; R78.81 Bacteremia; F15.10 Other stimulant abuse, uncomplicated; D72.819 Decreased white blood cell count, unspecified; B19.20 Unspecified viral hepatitis C without hepatic coma; K70.30 Alcoholic cirrhosis of liver without ascites; N40.0 Benign prostatic hyperplasia without lower urinary tract symptoms; K21.9 Gastro-esophageal reflux disease without esophagitis; D75.89 Other specified diseases of blood and blood-forming organs; D69.6 Thrombocytopenia, unspecified; M25.461 Effusion, right knee; R55 Syncope and collapse; W19.XXXA Unspecified fall, initial encounter; Y93.9 Activity, unspecified; Y92.89 Other specified places as the place of occurrence of the external cause; Y99.9 Unspecified external cause status
CPT/HCPCS: 36415; 36569; 70450-TC; 71045-TC-FY; 72125-TC; 73700-TC-RT; 76700-TC; 76856-TC; 77001-TC-FY; 80053; 80307; 82140; 82550; 82553; 82607; 82728; 82746; 83540; 83550; 83605; 83735; 84100; 84132; 84443; 84466; 84484; 85025; 85027; 85610; 85651; 85730; 86140; 87040; 87086; 87186; 93005; 93010; 93306-TC; 93971-TC; 97116-GP; 97162-GP; 99285-25; C1751; C9803; J0131; J0875; J1644; U0003

== ENCOUNTER 2020-09-05 09:29 | Inpatient (IN) | payer OTHER ==
[2020-09-05] MEDS ORDERED: PIPERACILLIN/TAZOB 4.5 GM 4.5 GM in DEXTROSE 5%-WATER 100 ML IVPB ONE (10:28)
[2020-09-05] MEDS ORDERED: VANCOMYCIN 1 GM in D5W (PRE-DOCKED) 1,000 MG/250 ML IVPB ONE (10:30)
[2020-09-05 10:55] LABS: BASO % 0.8 % (0-2.0); EOS % 2.4 % (0-4.5); HEMATOCRIT 32.3 % (35.4-49); HEMOGLOBIN 11.1 GM/dL (11.7-16.9); LYMPH % 17.3 % (8-40); MCH 31.4 pg (25.7-33.7); MCHC 34.4 g/dl (32.0-35.9); MEAN CELL VOLUME 91.2 fl (80-96); MEAN PLT VOLUME 6.7 fl (7.5-11.1); MONO % 15.1 % (3.8-10.2); NEUT % 64.4 % (42.8-82.8); PLATELET COUNT 183 K/MM3 (134-434); RBC 3.54 M/mm3 (4.00-5.60); RDW 18.6 % (11.9-15.9); WHITE BLOOD COUNT 4.4 K/mm3 (4.0-10.0)
[2020-09-05 11:17] LABS: CALCIUM 7.8 mg/dL (8.5-10.1)
[2020-09-05 11:18] LABS: ALBUMIN 2.1 g/dl (3.4-5.0); BLOOD UREA NITROGEN 4.2 mg/dL (7-18)
[2020-09-05 11:21] LABS: CREATININE 0.8 mg/dL (0.55-1.3)
[2020-09-05 11:23] LABS: BILIRUBIN,TOTAL 1.2 mg/dL (0.2-1); TOT PROT 9.3 g/dl (6.4-8.2)
[2020-09-05 11:54] LABS: EPI CELLS 2 /uL (0-25.1); HYALINE CASTS 0 /uL (0-3.1); PH,URINE 7.5 (5.0-8.0); URINE APPEARANCE CLEAR; URINE BACTERIA 11 /uL (0-1359); URINE BILIRUBIN NEGATIVE (NEGATIVE); URINE COLOR YELLOW; URINE GLUCOSE (UA) NEGATIVE (NEGATIVE); URINE KETONE NEGATIVE (NEGATIVE); URINE LEUK ESTERASE NEGATIVE (NEGATIVE); URINE NITRITE NEGATIVE (NEGATIVE); URINE PROTEIN NEGATIVE (NEGATIVE); URINE WBC 1 /uL (0-25.8)
[2020-09-05 12:03] LABS: INR 1.51 (0.83-1.09); PROTHROMBIN TIME (PATIENT) 18.3 SEC (9.7-13.0)
[2020-09-05] MEDS ORDERED: PIPERACILLIN/TAZOB 4.5 GM 4.5 GM/100 ML BAG IVPB ONE (13:08)
[2020-09-05] MEDS ORDERED: VANCOMYCIN 1 GRAM (PRE-DOCKED) 1,000 MG/250 ML BAG IVPB ONE (13:09)
[2020-09-05 14:42] LABS: URINE RBC 32.3 /uL (0-23.9)
[2020-09-05] MEDS ORDERED: FAMOTIDINE 20 MG/50 ML IVPB 20 MG/50 ML MG IVPB ONE (14:47)
[2020-09-05] MEDS ORDERED: methylPREDNISolone NA SUCC 125 MG/2 ML VIAL ONE (14:48)
[2020-09-05] MEDS ORDERED: methylPREDNISolone NA SUCC 125 MG/2 ML VIAL IVPUSH ONE (14:48)
[2020-09-05] MEDS ORDERED: CLINDAMYCIN 600MG PREMIX IVPB 600 MG/50 ML BAG IVPB ONE ×2 (16:27→16:42)
[2020-09-05] MEDS: PIPERACILLIN/TAZOB 3.375 GM 3.375 GM in DEXTROSE 5%-WATER - 50 ML IVPB SCH (20:34)
[2020-09-05 23:03] VITALS: BMI 27.3
[2020-09-06] MEDS ORDERED: DEXTROSE 5%-WATER - 50 ML IVPB ONE ×3 (00:30→17:14)
[2020-09-06] MEDS ORDERED: PIPERACILLIN/TAZOBACTAM 3.375 GM VIAL IVPB ONE ×3 (00:30→17:14)
[2020-09-06] MEDS: PIPERACILLIN/TAZOB 3.375 GM 3.375 GM in DEXTROSE 5%-WATER - 50 ML IVPB SCH ×3 (01:02→17:46)
[2020-09-06] MEDS: CLINDAMYCIN 600MG PREMIX IVPB 600 MG/50 ML BAG IVPB SCH ×3 (02:05→17:18)
[2020-09-06] MEDS ORDERED: METHADONE HCL 10 MG TABLET PO ONE (06:00)
[2020-09-06] MEDS ORDERED: METHADONE HCL 10 MG TABLET PO SCH (06:00)
[2020-09-06 07:46] LABS: CALCIUM 7.6 mg/dL (8.5-10.1)
[2020-09-06 07:47] LABS: BLOOD UREA NITROGEN 9.4 mg/dL (7-18)
[2020-09-06 07:49] LABS: MAGNESIUM 1.6 mg/dL (1.8-2.4)
[2020-09-06 07:50] LABS: BASO % 0.2 % (0-2.0); CREATININE 0.9 mg/dL (0.55-1.3); HEMATOCRIT 33.2 % (35.4-49); HEMOGLOBIN 11.5 GM/dL (11.7-16.9); LYMPH % 10.2 % (8-40); MCH 31.2 pg (25.7-33.7); MCHC 34.7 g/dl (32.0-35.9); MONO % 7.1 % (3.8-10.2); NEUT % 82.5 % (42.8-82.8); PHOSPHOROUS 3.8 mg/dL (2.5-4.9); PLATELET COUNT 180 K/MM3 (134-434); RBC 3.68 M/mm3 (4.00-5.60); RDW 18.5 % (11.9-15.9); WHITE BLOOD COUNT 3.4 K/mm3 (4.0-10.0)
[2020-09-06 07:51] LABS: BILIRUBIN,TOTAL 1.1 mg/dL (0.2-1); TOT PROT 8.2 g/dl (6.4-8.2)
[2020-09-06 08:41] LABS: ALBUMIN 1.7 g/dl (3.4-5.0)
[2020-09-06] MEDS ORDERED: MAGNESIUM SULF 50% (8.12 MEQ/2 ML-1 GM VIAL) IVPB ONE (08:49)
[2020-09-06] MEDS: TAMSULOSIN HCL 0.4 MG CAP PO SCH (09:10)
[2020-09-06] MEDS: ENOXAPARIN NA (PORCINE) 40 MG/0.4 ML DISP.SYRIN SQ SCH (09:10)
[2020-09-07] MEDS: CLINDAMYCIN 600MG PREMIX IVPB 600 MG/50 ML BAG IVPB SCH ×3 (01:50→17:20)
[2020-09-07] MEDS ORDERED: PIPERACILLIN/TAZOBACTAM 3.375 GM VIAL IVPB ONE ×3 (02:14→16:49)
[2020-09-07] MEDS ORDERED: DEXTROSE 5%-WATER - 50 ML IVPB ONE ×3 (02:15→16:49)
[2020-09-07] MEDS: PIPERACILLIN/TAZOB 3.375 GM 3.375 GM in DEXTROSE 5%-WATER - 50 ML IVPB SCH ×3 (02:23→17:20)
[2020-09-07] MEDS ORDERED: METHADONE HCL 10 MG TABLET PO SCH (06:00)
[2020-09-07] MEDS ORDERED: METHADONE HCL 10 MG TABLET ONE (06:03)
[2020-09-07] MEDS ORDERED: METHADONE HCL 40 MG DISPERSABLE TABLET ONE (06:04)
[2020-09-07] MEDS: METHADONE 40 MG, METHADONE 10 MG PO SCH (06:12)
[2020-09-07 08:30] LABS: EPI CELLS 5 /uL (0-25.1); HYALINE CASTS 0 /uL (0-3.1); PH,URINE 7.5 (5.0-8.0); URINE APPEARANCE CLEAR; URINE BACTERIA 41 /uL (0-1359); URINE BILIRUBIN NEGATIVE (NEGATIVE); URINE COLOR YELLOW; URINE GLUCOSE (UA) NEGATIVE (NEGATIVE); URINE KETONE NEGATIVE (NEGATIVE); URINE LEUK ESTERASE NEGATIVE (NEGATIVE); URINE NITRITE NEGATIVE (NEGATIVE); URINE PROTEIN NEGATIVE (NEGATIVE); URINE RBC 182 /uL (0-23.9); URINE WBC 3 /uL (0-25.8)
[2020-09-07 08:48] LABS: HEMATOCRIT 32.5 % (35.4-49); HEMOGLOBIN 11.2 GM/dL (11.7-16.9); MCH 31.3 pg (25.7-33.7); MCHC 34.4 g/dl (32.0-35.9); MEAN CELL VOLUME 90.9 fl (80-96); MEAN PLT VOLUME 6.8 fl (7.5-11.1); PLATELET COUNT 180 K/MM3 (134-434); RBC 3.57 M/mm3 (4.00-5.60); RDW 18.6 % (11.9-15.9); WHITE BLOOD COUNT 3.5 K/mm3 (4.0-10.0)
[2020-09-07 09:10] LABS: ALBUMIN 1.9 g/dl (3.4-5.0); BLOOD UREA NITROGEN 10.2 mg/dL (7-18); CALCIUM 7.8 mg/dL (8.5-10.1); CREATININE 0.8 mg/dL (0.55-1.3); MAGNESIUM 1.7 mg/dL (1.8-2.4)
[2020-09-07 09:11] LABS: BILIRUBIN,TOTAL 1.4 mg/dL (0.2-1)
[2020-09-07 09:12] LABS: TOT PROT 8.4 g/dl (6.4-8.2)
[2020-09-07] MEDS ORDERED: MAGNESIUM SULF 50% (8.12 MEQ/2 ML-1 GM VIAL) IVPB ONE (09:12)
[2020-09-07] MEDS ORDERED: POTASSIUM CHLORIDE TABS 20 MEQ TABLET.ER (FP) PO ONE (09:13)
[2020-09-07] MEDS: TAMSULOSIN HCL 0.4 MG CAP PO SCH (10:30)
[2020-09-07] MEDS: ENOXAPARIN NA (PORCINE) 40 MG/0.4 ML DISP.SYRIN SQ SCH (10:31)
[2020-09-07] MEDS ORDERED: ACETAMINOPHEN 325 MG TABLET (FP) PO ONE (13:02)
[2020-09-07] MEDS ORDERED: MAGNESIUM 1GM/D5W 100ML - 100 ML IVPB IVPB ONE (14:30)
[2020-09-07] MEDS ORDERED: MAGNESIUM SULF 50% (8.12 MEQ/2 ML-1 GM VIAL) ONE (15:11)
[2020-09-08] MEDS: CLINDAMYCIN 600MG PREMIX IVPB 600 MG/50 ML BAG IVPB SCH ×3 (01:34→17:10)
[2020-09-08] MEDS ORDERED: PIPERACILLIN/TAZOBACTAM 3.375 GM VIAL IVPB ONE ×4 (02:37→17:03)
[2020-09-08] MEDS ORDERED: DEXTROSE 5%-WATER - 50 ML IVPB ONE ×4 (02:40→17:03)
[2020-09-08] MEDS: PIPERACILLIN/TAZOB 3.375 GM 3.375 GM in DEXTROSE 5%-WATER - 50 ML IVPB SCH ×3 (02:43→17:46)
[2020-09-08] MEDS ORDERED: METHADONE HCL 10 MG TABLET ONE (05:49)
[2020-09-08] MEDS ORDERED: METHADONE HCL 40 MG DISPERSABLE TABLET ONE (05:49)
[2020-09-08] MEDS: METHADONE 40 MG, METHADONE 10 MG PO SCH (05:59)
[2020-09-08 08:31] LABS: HEMATOCRIT 30.1 % (35.4-49); HEMOGLOBIN 10.5 GM/dL (11.7-16.9); MCH 31.3 pg (25.7-33.7); MCHC 34.9 g/dl (32.0-35.9); MEAN CELL VOLUME 89.7 fl (80-96); MEAN PLT VOLUME 6.5 fl (7.5-11.1); PLATELET COUNT 170 K/MM3 (134-434); RBC 3.35 M/mm3 (4.00-5.60); RDW 18.5 % (11.9-15.9); WHITE BLOOD COUNT 2.4 K/mm3 (4.0-10.0)
[2020-09-08] MEDS: TAMSULOSIN HCL 0.4 MG CAP PO SCH (08:56)
[2020-09-08 08:57] LABS: ALBUMIN 1.7 g/dl (3.4-5.0); BLOOD UREA NITROGEN 10.9 mg/dL (7-18); CALCIUM 7.4 mg/dL (8.5-10.1); MAGNESIUM 1.7 mg/dL (1.8-2.4)
[2020-09-08 09:01] LABS: CREATININE 0.8 mg/dL (0.55-1.3)
[2020-09-08 09:02] LABS: TOT PROT 7.8 g/dl (6.4-8.2)
[2020-09-08] MEDS: ENOXAPARIN NA (PORCINE) 40 MG/0.4 ML DISP.SYRIN SQ SCH (10:56)
[2020-09-08] MEDS ORDERED: ACETAMINOPHEN 325 MG TABLET (FP) PO PRN (11:48)
[2020-09-08] MEDS ORDERED: MAGNESIUM 2GM/50ML STERILE WATER IVPB IVPB ONE (12:56)
[2020-09-08 23:26] VITALS: BP 113/72; PULSE 61; TEMP 98.8
== END 2020-09-08 21:30 | disposition short-term general hospital (02) | DRG 559 ==
LOC: JER 09:29 → JERBED 14:45 → J6S 21:41
PROVIDERS: ATTEND Internal Medicine
PROC: HZ2ZZZZ Detoxification Services for Substance Abuse Treatment (ICD-10-PCS; principal; 2020-09-07)
DX: T84.53XA Infection and inflammatory reaction due to internal right knee prosthesis, initial encounter (principal); U07.1 COVID-19; L03.115 Cellulitis of right lower limb; M00.061 Staphylococcal arthritis, right knee; F11.20 Opioid dependence, uncomplicated; L02.415 Cutaneous abscess of right lower limb; M86.161 Other acute osteomyelitis, right tibia and fibula; N40.0 Benign prostatic hyperplasia without lower urinary tract symptoms; Z96.651 Presence of right artificial knee joint; B19.20 Unspecified viral hepatitis C without hepatic coma; K21.9 Gastro-esophageal reflux disease without esophagitis; D64.9 Anemia, unspecified; R31.9 Hematuria, unspecified; T36.8X5A Adverse effect of other systemic antibiotics, initial encounter; M25.461 Effusion, right knee; K74.60 Unspecified cirrhosis of liver; D50.9 Iron deficiency anemia, unspecified; E83.42 Hypomagnesemia; E80.6 Other disorders of bilirubin metabolism; B95.61 Methicillin susceptible Staphylococcus aureus infection as the cause of diseases classified elsewhere; L27.0 Generalized skin eruption due to drugs and medicaments taken internally; I87.2 Venous insufficiency (chronic) (peripheral); B18.2 Chronic viral hepatitis C; E78.5 Hyperlipidemia, unspecified; D72.819 Decreased white blood cell count, unspecified; R60.0 Localized edema; Y83.8 Other surgical procedures as the cause of abnormal reaction of the patient, or of later complication, without mention of misadventure at the time of the procedure
CPT/HCPCS: 36415; 71046-TC-FY; 73701-TC-RT; 80053; 81003; 82550; 82728; 83540; 83550; 83605; 83735; 84100; 85025; 85027; 85045; 85610; 87040; 87070; 87077; 87086; 87205; 93005; 93010; 93970-TC; 97116-GP; 97162-GP; 99285-25; C9803; Q9967; U0003; U0005